=== PATIENT | male | born 1995 | race Caucasian/White ===

== ENCOUNTER 2017-12-09 10:50 | Inpatient (IN) | payer BC, OTHER ==
[~2017-12-09] VITALS: Ht 172.7 cm; Wt 61.2 kg
[2017-12-09] MEDS ORDERED: CLONIDINE HCL 0.1 MG TABLET PO PRN (15:00)
[2017-12-09] MEDS ORDERED: NICOTINE POLACRILEX 4 MG GUM-PK OF TEN BC PRN (15:00)
[2017-12-09] MEDS ORDERED: MAG HYDROX/AL HYDROX/SIMETH 30 ML LIQUID UDC PO PRN (15:00)
[2017-12-09] MEDS ORDERED: LOPERAMIDE HCL 2 MG CAPSULE PO PRN ×2 (15:00)
[2017-12-09] MEDS ORDERED: THIAMINE HCL 200 MG/2 ML VIAL IM ONE (15:00)
[2017-12-09] MEDS ORDERED: MAGNESIUM HYDROXIDE 30 ML LIQUID UDC PO PRN (15:00)
[2017-12-09] MEDS ORDERED: MIRALAX 17 GM POWD.PACK PO PRN (15:00)
[2017-12-09] MEDS ORDERED: IBUPROFEN 400 MG TABLET PO PRN (15:00)
[2017-12-09] MEDS ORDERED: diphenhydrAMINE 50 MG CAPSULE PO PRN (15:00)
[2017-12-09] MEDS ORDERED: NICOTINE 14 MG/24HR PATCH TD PRN (15:00)
[2017-12-09] MEDS ORDERED: ONDANSETRON ODT 4 MG TAB.RAPDIS SL PRN (15:00)
[2017-12-09] MEDS ORDERED: ACETAMINOPHEN 325 MG TABLET PO PRN (15:00)
[2017-12-09] MEDS ORDERED: LORAZEPAM 1 MG TABLET PO PRN ×2 (15:00)
[2017-12-09] MEDS ORDERED: LORAZEPAM 2 MG/1 ML VIAL IM PRN (15:00)
[2017-12-09] MEDS ORDERED: ONDANSETRON 4 MG/2 ML VIAL IM PRN (15:00)
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
--- NOTE | 2017-12-09 15:19 | NUR ---
Admissions Note 22 year old male admitted to [facility] for withdrawal from alcohol. Client stated, I need help, I have a problem with alcohol. Client is oriented to unit, educated about protocols and how to work TV and call light in his room. Weight: 135 pounds. Height: 5'8" CIWA: 4 Client reports a history of suicidal thoughts in the past, but no suicidal ideation or homicidal ideation at present time. Client denies any history of 5150. Client s skin with dry scab on R knee. Bilateral lung clear on auscultation, abdomen soft, non-tender, no edema noted. Client presents symptoms of withdrawal, anxiety, agitation, clammy skin, restless legs, and difficulty concentrating. Client has NKDA, regular diet, full code ordered. LBM was 12/10/07, medium/brown/soft. He gives verbal consent for PNA vaccine and HIV testing. Client states that he lives with his parents. He reports no prior treatment. His longest period of sobriety is for 1 week , six months ago. Client reports the reason why he cannot maintain sobriety is because, I feel horrible, I am anxious, irritable, shaking, and the night sweats, that is the worst part, I cannot fall asleep. When asked client how this treatment will be different he stated, "I do not know, this is my first treatment." Dr Lo assessed client. Urine not collected. All safety measures instituted. Seizure precaution. Call light within reach. Will continue to monitor.
[2017-12-09 15:58] LABS: *AMPHETAMINE, URINE NEGATIVE (NEGATIVE); *BARBITURATE, URINE NEGATIVE (NEGATIVE); *CANNABINOID, URINE POSITIVE (NEGATIVE); *COCCAINE, URINE NEGATIVE (NEGATIVE); *OPIATE, URINE NEGATIVE (NEGATIVE); *PHENCYCLIDINE SCREEN,URINE NEGATIVE (NEGATIVE)
[2017-12-09 16:00] VITALS: BP 138/86
[2017-12-09 17:06] LABS: BASOPHILS % (AUTO) 0.8 % (0.0-2.0); EOSINOPHILS # (AUTO) 0.3 K/uL (0.0-0.7); EOSINOPHILS % (AUTO) 5.5 % (0.0-7.0); HEMATOCRIT 45.5 % (36.7-47.1); HEMOGLOBIN 15.3 g/dL (12.5-16.3); LYMPHOCYTES # (AUTO) 1.2 K/uL (20.0-40.0); LYMPHOCYTES % (AUTO) 24.6 % (20.5-51.5); MEAN CORPUSCULAR HEMOGLOBIN 27.6 uug (23.8-33.4); MEAN CORPUSCULAR HGB CONC 34 g/dL (32.5-36.3); MONOCYTES # (AUTO) 0.6 K/uL (2.0-10.0); MONOCYTES % (AUTO) 12.1 % (0.0-11.0); NEUTROPHILS # (AUTO) 2.8 K/uL (1.8-8.9); PLATELET COUNT (AUTO) 194 K/uL (152-348); RED BLOOD CELL COUNT(AUTO) 5.55 MIL/uL (4.06-5.63); WHITE BLOOD COUNT (AUTO) 4.8 K/uL (3.6-10.2)
[2017-12-09 17:18] LABS: ETHANOL < 3 MG/DL (0-0)
[2017-12-09 17:19] LABS: ALANINE AMINOTRANSFERASE 61 U/L (16-63); ALKALINE PHOSPHATASE 163 U/L (50-136); AMYLASE 178 U/L (25-115); ASPARTATE AMINOTRANSFERASE 31 U/L (15-37); BILIRUBIN,TOTAL 0.5 mg/dL (0.2-1.0); CARBON DIOXIDE 31 mmol/L (21-32); CHLORIDE 101 mmol/L (98-107); GLUCOSE 96 mg/dL (74-106); MAGNESIUM 2.2 mg/dL (1.8-2.4); POTASSIUM 3.9 mmol/L (3.5-5.1); TOTAL PROTEIN, SERUM 8.3 g/dL (6.4-8.2); UREA NITROGEN, BLOOD 11 mg/dL (7-18)
--- NOTE | 2017-12-09 19:00 | NUR ---
Start of Shift Patient Received. Patient is noted in his room awake, alert and verbally responsive. Breathing even and non labored. Per endorsement, patient was admitted 12/09/17 for medical supervision for ETOH withdrawal. Patient is currently receiving PRN medications for increased signs and symptoms of withdrawal. Patient noted to verbalize history of seizures as a child but for unknown reasons. Patient is also noted with a plastic cast to his right hand due to previous injury prior to admission. No PRN Medications administered. Last noted CIWA 4. All needs attended to promptly. Will continue plan of care as ordered.
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
[2017-12-09 20:30] VITALS: BP 145/70
[2017-12-10 00:43] VITALS: BP 142/77
[2017-12-10 04:19] VITALS: BP 96/59
--- NOTE | 2017-12-10 07:30 | NUR ---
START OF SHIFT Pt 22 y/o male admitted for evaluation of etoh use. Pt received in room on bed with eyes closed resting, but easily arousable to name. Pt alert and oriented to name, place, and time. Perrla. Skin warm and dry to touch. Pt appears disheveled. Food wrappings and empty water bottles scattered throughout the room. Encouraged to maintain hygiene. It was reported that pt slept for 11 hours last night. Last ciwa=3 reported @ 0400. Pt is on prn ativan. Bed on lowest position with side rails x2 up for safety. Call light within reach.
[2017-12-10 08:00] VITALS: BP 132/56
[2017-12-10] MEDS: THIAMINE HCL 100 MG TABLET PO SCH (08:28)
[2017-12-10] MEDS: FOLIC ACID 1 MG TABLET PO SCH (08:28)
[2017-12-10] MEDS: MULTIVITAMINS,THERAPEUTIC TABLET PO SCH (08:28)
[2017-12-10] MEDS ORDERED: TUBERCULIN,PURIF.PROT.DERIV. 5 TU/0.1 ML TEST ID ONE (09:00)
--- NOTE | 2017-12-10 09:15 | NUR ---
PRN Pt states has pain 7/10 of right hand. Tylenol po prn per MD order given and tolerated well.
--- NOTE | 2017-12-10 09:16 | NUR ---
PRN Pt states has pain of right hand 7/10. Ibuprofin po prn per MD order given and tolerated well.
--- NOTE | 2017-12-10 10:16 | NUR ---
PRN FERNANDO Pt states pain 10/22.
[2017-12-10] MEDS ORDERED: IBUPROFEN 600 MG TABLET PO PRN (11:30)
[2017-12-10 12:18] VITALS: BP 139/85
[2017-12-10] MEDS: KETOROLAC TROMETHAMINE 30 MG INJ IM PRN ×2 (14:25→21:18)
--- NOTE | 2017-12-10 14:30 | NUR ---
PRN Pt states has sharp pain of right hand 7/10. Toradol IM prn per MD order given and tolerated well.
--- NOTE | 2017-12-10 15:30 | NUR ---
PRN FERNANDO Pt states pain 09/24.
[2017-12-10 16:00] VITALS: BP 139/78
--- NOTE | 2017-12-10 18:25 | NUR ---
DISCHARGE Pt 22 y/o male admitted for evaluation of etoh use. Pt alert and oriented to name, place, and time. Perrla. Skin warm and dry to touch. Pt appears disheveled. Empty water bottles and clothes scattered throughout the room. Encouraged to maintain hygiene. Pt observed mostly isolative to room this morning. Pt did attend group activity. Pt was seen by MD today. Pt medication compliant and tolerated well. No ASE noted. Ciwa=2@0800,2@1200, and 2@1600. Pt is on ativan prn. Bed on lowest position with side rails x2 up for safety. Call light within reach.
--- NOTE | 2017-12-10 18:57 | NUR ---
PRN Pt states has heartburn. Maloox prn per MD order given and tolerated well.
--- NOTE | 2017-12-10 19:15 | NUR ---
START OF SHIFT Patient is a 22-year-old male admitted on 12/09/17 for ETOH (beer, vodka) withdrawal. Patient is currently not on a taper, with PRN Ativan on hand. Patient's last CIWA was 2, as reported during endorsement. Patient received the following PRNs during day shift: Tylenol and Motrin this morning, Toradol IM, and Maalox. All were reassessed with exception to Maalox because it was given right before change of shift; will reassess. Upon assessment, patient is alert and oriented x4, complaining of pain 8/10 at right hand. Patient's room is cluttered, bed is unmade, and patient appears disheveled. Patient is on fall and seizure precautions with no history of seizure. Safety measures in place, side rails up x2, bed locked in low position, call light within reach. Will continue to monitor.
--- NOTE | 2017-12-10 19:57 | NUR ---
PRN MAALOX REASSESSMENT Patient was given PRN Maalox for heartburn prior to shift change. Upon reassessment patient reports indigestion and stomachache has resolved. PRN effective. Safety measures in place, call light within reach. Will continue to monitor.
[2017-12-10 20:00] VITALS: BP 140/78
--- NOTE | 2017-12-10 21:18 | NUR ---
PRN TORADOL IM Patient reports "sharp" pain at his right hand, 8/10 on pain scale. PRN Toradol given IM to patient's left deltoid; patient tolerated well. Safety measures in place, side rails up x2, bed locked in low position, call light within reach. Will monitor for effectiveness.
--- NOTE | 2017-12-10 21:48 | NUR ---
PRN TORADOL REASSESSMENT Patient reports 09/24 for pain stating, "I hardly feel anything." PRN Toradol effective. Safety measures in place, call light within reach. Will continue to monitor.
[2017-12-11] VITALS: BP 132/78
--- NOTE | 2017-12-11 | NUR ---
CIWA DEFERRED CIWA deferred due to patient sleeping; to be assessed and scored while patient is awake. Respirations are even and unlabored, 18/min. Safety measures in place, call light within reach. Will continue to monitor.
[2017-12-11 04:00] VITALS: BP 128/76
--- NOTE | 2017-12-11 04:00 | NUR ---
CIWA DEFERRED CIWA deferred again at this time due to patient sleeping. Respirations are even and unlabored, 16/min. SpO2 is 99% on RA. Safety measures in place, side rails up x2, bed locked in low position, call light within reach. Will continue to monitor.
--- NOTE | 2017-12-11 07:19 | NUR ---
END OF SHIFT Patient is a 22-year-old male admitted on 12/09/17 for ETOH (beer, vodka) withdrawal. Patient is currently not on a taper, with PRN Ativan on hand. Patient's last CIWA was 3. Patient received PRN Toradol IM at 2117; upon reassessment, patient's pain decreased from 8/10 to 2/10. Patient slept for 7 hours, total intake of 500mL, void x1, stool x0. Patient is on fall and seizure precautions with no history of seizure. Safety measures in place, side rails up x2, bed locked in low position, call light within reach. Will endorse to day shift.
--- NOTE | 2017-12-11 07:45 | NUR ---
START OF SHIFT Rcvd endorse from ongoing nurse, client is in bed, he is a/o x 4, he presents with anxious mood. Client reports feeling restless and discomfort on R hand. Client denies any nausea, vomiting, or diarrhea. Client denies any suicidal/homicidal ideation. Last CIWA 3 @ 1999. PRN Toradol 30mg IM administered for pain on R hand, see notes for effectiveness of medication. PRN Ativan 1 mg PO q2h PRN CIWA 8-14, Ativan 2 mg PO q2h PRN CIWA 15+ and notify MD. Client is on seizure precautions. call light within reach.
[2017-12-11 08:04] VITALS: BP 129/72
[2017-12-11] MEDS: FOLIC ACID 1 MG TABLET PO SCH (08:19)
[2017-12-11] MEDS: MULTIVITAMINS,THERAPEUTIC TABLET PO SCH (08:19)
[2017-12-11] MEDS: THIAMINE HCL 100 MG TABLET PO SCH (08:19)
--- NOTE | 2017-12-11 09:42 | NUR ---
Client refused PNA vaccine stating, No, I don't think I need it, but thank you." Education rendered of risk/benefits of PNA vaccine, but client still refused.
--- NOTE | 2017-12-11 10:45 | NUR ---
Therapist prompted client to attend group counseling sessions with the next session being at 11:00am today. Client expressed interest in participating in group counseling and stated he would attend.
[2017-12-11 12:06] LABS: HEPATITIS B SURFACE AG Negative (Negative)
[2017-12-11 12:55] VITALS: BP 141/83
[2017-12-11 16:53] VITALS: BP 139/86
[2017-12-11] MEDS ORDERED: CLON0.1T14 PO (18:43)
[2017-12-11] MEDS ORDERED: DIPH50CA37 PO (18:43)
[2017-12-11] MEDS ORDERED: IBUP-1955 PO (18:43)
--- NOTE | 2017-12-11 19:04 | NUR ---
END OF SHIFT Endorse client to incoming nurse, client is in group therapy, he is a/o x 4, he continues to present with depressed mood, flat affect, and fatigue. Client is scheduled for discharge tomorrow to [facility], he was admitted for supervision of alcohol use. Last [facility] 4 @ 1600. Client was compliant with group therapy. Adequate PO fluid intake 2891mL, void x 3, stool x 2. Client consumes ~75% of meals. Call light within reach.
--- NOTE | 2017-12-11 19:30 | NUR ---
START OF SHIFT Pt is a 24 year old male admitted for supervision of alcohol use.Pt is A/A/O X 4, pleasant on approach; he is scheduled for discharge tomorrow to [facility].Last CIWA was 4.Pt has been compliant with care.Pt is FULL CODE, NKA. Adequate PO fluids encouraged.Safety measures in place,call light is within reach. Will continue to monitor
[2017-12-11 20:00] VITALS: BP 118/84
--- NOTE | 2017-12-11 21:13 | NUR ---
PRN BENADRYL GIVEN ORDERED FOR C/O INSOMNIA.WILL MONITOR FOR EFFECTIVENESS.
--- NOTE | 2017-12-11 22:15 | NUR ---
PRN F/U Pt is comfortably sleeping in bed;respirations are even and non labored,safety measures in place with call light within reach;will continue to monitor.
--- NOTE | 2017-12-12 | NUR ---
CIWA DEFERRED Pt is comfortably sleeping in bed;respirations 16, even and non labored,safety measures in place with call light within reach;v/s refused;will continue to monitor.
--- NOTE | 2017-12-12 04:40 | NUR ---
CIWA DEFERRED Pt remains comfortably sleeping in bed;respirations 16, even and non labored,safety measures in place with call light within reach;v/s refused;will continue to monitor.
--- NOTE | 2017-12-12 06:55 | NUR ---
END OF SHIFT Pt is a 22 year old male admitted for supervision of alcohol use.Pt is A/A/O X 4, pleasant on approach; he is scheduled for discharge today to [facility].Last CIWA was 4.Pt has been compliant with care.PRN Benadryl was given with good effect.Pt slept 8 hours,fluid intake was 2200 mls,voided x 2;B/M X 1. Safety measures in place,call light is within reach. Will continue to monitor
--- NOTE | 2017-12-12 07:49 | NUR ---
START OF SHIFT: RECEIVED PT A/O X 4 LAYING IN BED. HE REPORTS MILD ANXIETY ABOUT DISCHARGING BUT STATES HE FEELS POSITIVE ABOUT HIS FUTURE. GEORGE 2. WILL MEDICATE ORDERED AND CONTINUE WITH DISCHARGE PROCESS.
[2017-12-12 08:00] VITALS: BP 140/74
[2017-12-12] MEDS: MULTIVITAMINS,THERAPEUTIC TABLET PO SCH (08:19)
[2017-12-12] MEDS: FOLIC ACID 1 MG TABLET PO SCH (08:19)
[2017-12-12] MEDS: THIAMINE HCL 100 MG TABLET PO SCH (08:19)
--- NOTE | 2017-12-12 09:37 | NUR ---
DISCHARGE: PT IS A/O X 4. HE DENIES S/I AND H/I. HE STATES HE FEELS ENTHUSIASTIC TOWARD RECOVERY. BELONGINGS RETURNED. EDUCATED PT ON DISCHARGE MEDS AND INSTRUCTIONS. PT EXPRESSED VERBAL UNDERSTANDING OF EDUCATION . MATERIAL ATTENDANT ESCORTED PT TO [facility] WHERE HE WAS TRANSPORTED BY [facility] TO THE LAST HOUSE AT 0934.
== END 2017-12-12 09:34 | disposition home or self-care (01) | DRG 895 ==
LOC: SRC 14:15
PROVIDERS: ADMIT Internal Medicine; ATTEND Internal Medicine
PROC: HZ2ZZZZ Detoxification Services for Substance Abuse Treatment (ICD-10-PCS; principal; 2017-12-09)
PROC: HZ41ZZZ Group Counseling for Substance Abuse Treatment, Behavioral (ICD-10-PCS; 2017-12-10)
PROC: HZ31ZZZ Individual Counseling for Substance Abuse Treatment, Behavioral (ICD-10-PCS; 2017-12-11)
DX: F10.230 Alcohol dependence with withdrawal, uncomplicated (principal); K85.20 Alcohol induced acute pancreatitis without necrosis or infection; I15.9 Secondary hypertension, unspecified; F13.10 Sedative, hypnotic or anxiolytic abuse, uncomplicated; Y90.0 Blood alcohol level of less than 20 mg/100 ml; F17.210 Nicotine dependence, cigarettes, uncomplicated; F41.9 Anxiety disorder, unspecified; S62.101D Fracture of unspecified carpal bone, right wrist, subsequent encounter for fracture with routine healing; Y04.0XXD Assault by unarmed brawl or fight, subsequent encounter; F12.10 Cannabis abuse, uncomplicated; F14.10 Cocaine abuse, uncomplicated; S66.811D Strain of other specified muscles, fascia and tendons at wrist and hand level, right hand, subsequent encounter
CPT/HCPCS: 36415; 70030-TC; 80307; 80349; 83735; 85025; 86580; 86592; 86705; 86803; 87340; 87806; A4663; G0480; J1885; J3411; Q0163